=== PATIENT | male | born 1995 | race African-American/Black ===

== ENCOUNTER 2017-11-04 15:46 | Emergency (ER) | payer OTHER ==
[2017-11-04 15:55] VITALS: BP 125/69; PULSE 68; TEMP 97.8; BMI 31.5
--- NOTE | 2017-11-04 15:56 | PDOC ---
History of Present Illness - General Chief Complaint: Pain Stated Complaint: RT ANKLE PAIN Time Seen by Provider: 11/04/17 15:56 Past History - Past Medical History Allergies/Adverse Reactions: Allergies Allergy/AdvReac Type Severity Reaction Status Date / Time No Known Allergies Allergy Verified 11/04/17 15:55 Home Medications: Ambulatory Orders Ibuprofen 800 mg PO TID #30 tablet 11/04/17 COPD: No - Immunization History Immunization Up to Date: No - Suicide/Smoking/Psychosocial Hx Smoking History: Current every day smoker Have you smoked in the past 12 months: Yes Number of Cigarettes Smoked Daily: 10 Information on smoking cessation initiated: No Hx Alcohol Use: No Drug/Substance Use Hx: No Substance Use Type: None *Physical Exam - Vital Signs Last Vital Signs Temp Pulse Resp BP Pulse Ox 97.8 F 68 20 125/69 100 11/04/17 15:52 11/04/17 15:52 11/04/17 15:52 11/04/17 15:52 11/04/17 15:52 *DC/Admit/Observation/Transfer Diagnosis at time of Disposition: Foot pain, right - Discharge Dispostion Disposition: HOME Condition at time of disposition: Stable Admit: No - Referrals Referrals: Eric Carr MD [Staff Physician] - Nato Carroll MD [Staff Physician] - - Patient Instructions Printed Discharge Instructions: DI for Foot Pain Additional Instructions: Your x-rays negative for new fractures today. Please follow up with podiatry and orthopedics for further management of your symptoms. You may take Motrin 800 mg every 8 hours as needed for pain. Please wear the shoe and Saul wrap for comfort. Return to the emergency department if you have worsening pain, numbness and tingling to her extremities, fevers, chills or have any changes in your symptoms. - Post Discharge Activity Forms/Work/School Notes: Back to Work
== END 2017-11-04 17:05 | disposition home or self-care (01) ==
LOC: JERFT 15:46
DX: M79.671 Pain in right foot (principal); F17.210 Nicotine dependence, cigarettes, uncomplicated
CPT/HCPCS: 73610-TC-RT-FY; 73630-TC-RT-FY; 99281-25

== ENCOUNTER 2018-03-18 19:21 | Emergency (ER) | payer OTHER ==
[2018-03-18 19:52] VITALS: BP 133/60; PULSE 73; BMI 31.0
--- NOTE | 2018-03-18 19:52 | PDOC ---
Rapid Medical Evaluation Chief Complaint: Chest Pain Time Seen by Provider: 03/18/18 19:48 Medical Evaluation: Allergies Allergy/AdvReac Type Severity Reaction Status Date / Time No Known Allergies Allergy Verified 11/04/17 15:55 03/18/18 19:48 This patient had a brief in-person evaluation by me The patient has a chief complaint of: right sided chest pain worse with inhalation. States no heavy lifting or shortness of breath. The pertinent physical findings are: NAD even and unlabored breathing no lesions on skin The following orders have been placed: ekg, chest xray This patient will proceed to the ED for further evaluation.
--- NOTE | 2018-03-18 20:19 | PDOC ---
History of Present Illness - General Chief Complaint: Chest Pain Stated Complaint: CHEST PAIN Time Seen by Provider: 03/18/18 19:48 - History of Present Illness Initial Comments: 22-year-old male without comorbidities presents for evaluation of atraumatic onset of right-sided chest pain times one day. He states the pain started last night while at work. He points to the right lateral aspect of the chest as the area of his discomfort he describes his pain as sharp exacerbated with deep breathing relieved with rest no radiation of symptoms. 03/18/18 20:12 Past History - Past Medical History Allergies/Adverse Reactions: Allergies Allergy/AdvReac Type Severity Reaction Status Date / Time No Known Allergies Allergy Verified 11/04/17 15:55 Home Medications: Ambulatory Orders NK [No Known Home Medication] 03/18/18 COPD: No - Immunization History Immunization Up to Date: No - Suicide/Smoking/Psychosocial Hx Smoking History: Current every day smoker Have you smoked in the past 12 months: Yes Number of Cigarettes Smoked Daily: 5 Information on smoking cessation initiated: No Hx Alcohol Use: No Drug/Substance Use Hx: No Substance Use Type: None Review of Systems - Review of Systems Cardiac (ROS): Yes: Chest Pain All Other Systems: Reviewed and Negative *Physical Exam - Vital Signs Last Vital Signs Temp Pulse Resp BP Pulse Ox 73 18 133/60 100 03/18/18 19:48 03/18/18 19:48 03/18/18 19:48 03/18/18 19:48 - Physical Exam Comments: HEAD: NC/AT EYES: Conjuntiva clear Ears: Canals and TM's normal NOSE: No d/c THROAT: Moist mucous membrances, oral pharanx clear, uvula midline NECK: Supple without adenopathy CARDIAC: S1 S2, no chest wall tenderness LUNGS: CTA Full and Equal breath sounds ABDOMEN: Soft NT ND MS: Full ROM in all joints without edema NEUROLOGIC: No gross sensory or motor deficits, NVID SKIN: Normal color and temperature no lesions or rashes 03/18/18 20:14 ED Treatment Course - LABORATORY CBC & Chemistry Diagram: 03/18/18 20:23 03/18/18 20:23 Medical Decision Making - Medical Decision Making 22-year-old male without comorbidities presents for evaluation of atraumatic onset of pleuritic chest pain. I'll get preliminary read lab work and a d-dimer and hopefully discharge him is normal. Do not think he has a PE. I did not order a troponin. His chest pain is not constant it waxes and wanes and it seems that exacerbated with deep breathing 03/18/18 20:19 03/18/18 20:46 D-dimer normal range this is mostly costochondritis chest pain from working. 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 Also represent an intercostal strain. I will give him instructions to follow-up with his primary care physician in one to 2 days with explicit instructions to return to the emergency room should the pain go unresolved or worsen *DC/Admit/Observation/Transfer Diagnosis at time of Disposition: Intercostal muscle strain - Discharge Dispostion Disposition: HOME Condition at time of disposition: Stable Decision to Admit order: No - Referrals Referrals: César Michael MD [Primary Care Provider] - - Patient Instructions Printed Discharge Instructions: DI for Atypical Chest Pain Additional Instructions: Return to the emergency room should symptoms worsen or go unresolved. Follow-up with your primary care physician once 2 days for further evaluation and treatment options. May take Tylenol and Motrin as directed for pain. Her blood work today was normal - Post Discharge Activity
[2018-03-18 20:27] LABS: HEMATOCRIT 39.1 % (35.4-49); MCH 29.1 pg (25.7-33.7); MCHC 33.3 g/dl (32.0-35.9); MEAN CELL VOLUME 87.4 fl (80-96); MEAN PLT VOLUME 9.3 fl (7.5-11.1); PLATELET COUNT 206 K/MM3 (134-434); RBC 4.47 M/mm3 (4.00-5.60); RDW 14.5 % (11.9-15.9); WHITE BLOOD COUNT 6.4 K/mm3 (4.0-10.0)
[2018-03-18 20:48] LABS: ALBUMIN 3.7 g/dl (3.4-5.0); ALK PHOS 81 U/L (45-117); ANION GAP 6 MMOL/L (8-16); BILIRUBIN,TOTAL 0.8 mg/dL (0.2-1); BLOOD UREA NITROGEN 16 mg/dL (7-18); CALCIUM 9.2 mg/dL (8.5-10.1); CHLORIDE 108 mmol/L (98-107); CO2 30 mmol/L (21-32); CREATININE 0.9 mg/dL (0.55-1.3); GLUCOSE,RANDOM 98 mg/dL (74-106); POTASSIUM 4.1 mmol/L (3.5-5.1); SGOT/AST 17 U/L (15-37); SGPT/ALT 22 U/L (13-61); SODIUM 144 mmol/L (136-145); TOT PROT 7.3 g/dl (6.4-8.2)
--- NOTE | 2018-03-19 16:44 | EKG ---
Test Reason : Blood Pressure : / mmHG Vent. Rate : 067 BPM Atrial Rate : 067 BPM P-R Int : 134 ms QRS Dur : 080 ms QT Int : 360 ms P-R-T Axes : 057 065 033 degrees QTc Int : 380 ms NORMAL SINUS RHYTHM NORMAL ECG NO PREVIOUS ECGS AVAILABLE Confirmed by Alberto Todd ([id number]) on 03/19/2018 4:43:25 PM Referred By: Confirmed By:Alberto Todd
== END 2018-03-18 21:27 | disposition home or self-care (01) ==
LOC: JERFT 19:21 → JER 19:21 → JERFT 21:21
DX: S29.011A Strain of muscle and tendon of front wall of thorax, initial encounter (principal); X58.XXXA Exposure to other specified factors, initial encounter; Y93.89 Activity, other specified; Y92.89 Other specified places as the place of occurrence of the external cause; F17.210 Nicotine dependence, cigarettes, uncomplicated
CPT/HCPCS: 36415; 71045-TC-FY; 80053; 85027; 85379; 93005; 93010; 99281-25

== ENCOUNTER 2018-04-02 23:39 | Emergency (ER) | payer OTHER ==
[2018-04-03 00:02] VITALS: BP 122/65; PULSE 92; TEMP 98.3; BMI 31.7
[2018-04-03] MEDS ORDERED: ACETAMINOPHEN 500 MG TABLET (FP) PO STA (01:02)
--- NOTE | 2018-04-03 01:02 | PDOC ---
History of Present Illness <Luz Wright - Last Filed: 04/03/18 01:03> - General History Source: Patient Exam Limitations: No Limitations - History of Present Illness Initial Comments: 04/03/18 01:10 The patient is a 22-year-old male, with no past medical history, who presents to the ED with 2 days of cough and nasal congestion. The patient took benadryl because he thought his symptoms were a result of his allergies. He reports that he smokes marijuana daily. The patient denies any fevers, chills, nausea, vomiting, diarrhea, or abdominal pain. Denies any chest pain or shortness of breath. Allergies: NKA Surgical History: None Social History: Reports daily marijuana use. PCP: Dr. Smith <Leticia Barber - Last Filed: 04/03/18 01:14> - General Chief Complaint: Cold Symptoms Stated Complaint: HEADACHE,COUGHING Time Seen by Provider: 04/03/18 00:52 Past History - Past Medical History COPD: No - Immunization History Immunization Up to Date: No - Suicide/Smoking/Psychosocial Hx Smoking History: Never smoked Have you smoked in the past 12 months: Yes Number of Cigarettes Smoked Daily: 5 Information on smoking cessation initiated: No Hx Alcohol Use: No Drug/Substance Use Hx: Yes (Marijuana) Substance Use Type: None <Luz Wright - Last Filed: 04/03/18 01:03> <Leticia Barber - Last Filed: 04/03/18 01:14> - Past Medical History Allergies/Adverse Reactions: Allergies Allergy/AdvReac Type Severity Reaction Status Date / Time No Known Allergies Allergy Verified 04/02/18 23:52 Home Medications: Ambulatory Orders NK [No Known Home Medication] 03/18/18 Review of Systems - Review of Systems Able to Perform ROS?: Yes Comments:: 04/03/18 01:11 CONSTITUTIONAL: Absent: fever, chills, diaphoresis, generalized weakness, malaise, loss of appetite HEENT: Present: (+)Rhinorrhea, nasal congestion. Absent: throat pain, throat swelling, difficulty swallowing, mouth swelling, ear pain, eye pain, visual Changes CARDIOVASCULAR: Absent: chest pain, syncope, palpitations, irregular heart rate, lightheadedness , peripheral edema RESPIRATORY: Present: (+)cough. Absent: shortness of breath, dyspnea with exertion, orthopnea, wheezing, stridor , hemoptysis GASTROINTESTINAL: Absent: abdominal pain, abdominal distension, nausea, vomiting, diarrhea, constipation, melena, hematochezia GENITOURINARY: Absent: dysuria, frequency, urgency, hesitancy, hematuria, flank pain, genital pain MUSCULOSKELETAL: Absent: myalgia, arthralgia, joint swelling SKIN: Absent: rash, itching, pallor HEMATOLOGIC/IMMUNOLOGIC: Absent: easy bleeding, easy bruising, lymphadenopathy, frequent infections ENDOCRINE: Absent: unexplained weight gain, unexplained weight loss, heat intolerance, cold intolerance NEUROLOGIC: Absent: headache, focal weakness or paresthesias, dizziness, unsteady gait, seizure, mental status changes, bladder or bowel incontinence PSYCHIATRIC: Absent: anxiety, depression, suicidal or homicidal ideation, hallucinations. <Leticia Barber - Last Filed: 04/03/18 01:14> *Physical Exam - Vital Signs Last Vital Signs Temp Pulse Resp BP Pulse Ox 98.3 F 92 H 20 122/65 98 04/02/18 23:53 04/02/18 23:53 04/02/18 23:53 04/02/18 23:53 04/02/18 23:53 <Luz Wright - Last Filed: 04/03/18 01:03> - Vital Signs Last Vital Signs Temp Pulse Resp BP Pulse Ox 98.3 F 92 H 20 122/65 98 04/02/18 23:53 04/02/18 23:53 04/02/18 23:53 04/02/18 23:53 04/02/18 23:53 - Physical Exam Comments: 04/03/18 01:12 GENERAL: Well developed, well nourished. Awake and alert. No acute distress. HEENT: (+)Rhinorrhea. Normocephalic, atraumatic. PERRLA, EOMI. No conjunctival pallor. Sclera are non-icteric. Moist mucous membranes. Oropharynx is clear. NECK: Supple. Full ROM. No JVD. Carotid pulses 2+ and symmetric, without bruits. No thyromegaly. No lymphadenopathy. CARDIOVASCULAR: Regular rate and rhythm. No murmurs, rubs, or gallops. Distal pulses are 2+ and symmetric. PULMONARY: No evidence of respiratory distress. Lungs clear to auscultation bilaterally. No wheezing, rales or rhonchi. ABDOMINAL: Soft. Non-tender. Non-distended. No rebound or guarding. No organomegaly. Normoactive bowel sounds. MUSCULOSKELETAL Normal range of motion at all joints. No bony deformities or tenderness. No CVA tenderness. EXTREMITIES: No cyanosis. No clubbing. No edema. No calf tenderness. SKIN: Warm and dry. Normal capillary refill. No rashes. No jaundice. NEUROLOGICAL: Alert, awake, appropriate. Cranial nerves 2-12 intact. No deficits to light touch and temperature in face, upper extremities and lower extremities. No motor deficits in the in face, upper extremities and lower extremities. PSYCHIATRIC: Cooperative. Good eye contact. Appropriate mood and affect. <Leticia Barber - Last Filed: 04/03/18 01:14> *DC/Admit/Observation/Transfer <Luz Wright - Last Filed: 04/03/18 01:03> - Attestations Scribe Attestion: 04/03/18 01:13 Documentation prepared by Leticia Barber, acting as medical equipment sales for Luz Wright MD. <Leticia Barber - Last Filed: 04/03/18 01:14> Diagnosis at time of Disposition: Common cold virus, Nasal congestion, Cough - Discharge Dispostion Disposition: HOME - Referrals Referrals: Amber Smith MD [Primary Care Provider] - - Patient Instructions Printed Discharge Instructions: DI for Common Cold Additional Instructions: please take tylenol or motrin for fever and bodyaches You may use nasal decongestants you can buy over the counter rest stay hydrated with drinking water - Post Discharge Activity
[2018-04-03] MEDS ORDERED: guaiFENesin 200 MG/10 ML 10 ML UNIT-DOSE CUPS PO ONE (01:03)
[2018-04-03] MEDS ORDERED: ACETAMINOPHEN 325 MG TABLET (FP) ONE (01:23)
[2018-04-03] MEDS ORDERED: guaiFENesin 200 MG/10 ML 10 ML UNIT-DOSE CUPS ONE (01:23)
== END 2018-04-03 01:32 | disposition home or self-care (01) ==
LOC: JER 23:39
DX: J00 Acute nasopharyngitis [common cold] (principal)
CPT/HCPCS: 99282-25

== ENCOUNTER 2018-04-23 00:12 | Emergency (ER) | payer OTHER ==
[2018-04-23 00:36] VITALS: BP 105/66; PULSE 81; TEMP 98.7; BMI 32.5
[2018-04-23] MEDS ORDERED: SODIUM CHLORIDE 1,000 ML IV STA (00:58)
[2018-04-23] MEDS ORDERED: ONDANSETRON 4 MG/2 ML VIAL IVPUSH ONE (00:58)
[2018-04-23] MEDS ORDERED: FAMOTIDINE 20 MG/50 ML IVPB 20 MG/50 ML MG IVPB ONE (00:58)
[2018-04-23] MEDS ORDERED: ACETAMINOPHEN 1000 MG/100 ML VIAL (NON FORMULARY) IVPB ONE (00:58)
--- NOTE | 2018-04-23 01:24 | PDOC ---
History of Present Illness - General Chief Complaint: Pain Stated Complaint: PAIN,LT FOOT Time Seen by Provider: 04/23/18 00:34 History Source: Patient Exam Limitations: No Limitations - History of Present Illness Initial Comments: 04/23/18 01:21 Best Contact: PCP:N/a Pmhx:0 Pshx:0 Allergies:NKDA FH:0 Social Hx: Cigarettes/ 0 Alcohol/ social Drugs/0 LMP:N/A 22-year-old male presents to the ER complaining of pain to the left foot. Patient states he was upset this evening and kicked the car door. Pain is described as 4/10 dull nonradiating intermittent discomfort. Patient denies extremity numbness or tingling sensation, ankle or knee pain. Patient denies any other complaints. Past History - Past Medical History Allergies/Adverse Reactions: Allergies Allergy/AdvReac Type Severity Reaction Status Date / Time No Known Allergies Allergy Verified 04/02/18 23:52 Home Medications: Ambulatory Orders NK [No Known Home Medication] 03/18/18 COPD: No - Immunization History Immunization Up to Date: No - Suicide/Smoking/Psychosocial Hx Smoking History: Current every day smoker Have you smoked in the past 12 months: Yes Number of Cigarettes Smoked Daily: 5 Information on smoking cessation initiated: No Hx Alcohol Use: Yes (Socially) Drug/Substance Use Hx: Yes (MJ) Substance Use Type: None Review of Systems - Review of Systems Able to Perform ROS?: Yes Comments:: 04/23/18 01:23 CONSTITUTIONAL: Absent: fever, chills, diaphoresis, generalized weakness, malaise, loss of appetite HEENT: Absent: rhinorrhea, nasal congestion, throat pain, throat swelling, difficulty swallowing, mouth swelling, ear pain, eye pain, visual Changes CARDIOVASCULAR: Absent: chest pain, loss of consciousness, palpitations, irregular heart rate, peripheral edema RESPIRATORY: Absent: cough, shortness of breath, dyspnea with exertion, orthopnea, wheezing, stridor, hemoptysis GASTROINTESTINAL: Absent: abdominal pain, abdominal distension, nausea, vomiting, diarrhea, constipation, melena, hematochezia GENITOURINARY: Absent: dysuria, frequency, urgency, hesitancy, hematuria, flank pain, genital pain MUSCULOSKELETAL: + Pain to left great toe and mid foot Absent: myalgia, arthralgia, joint swelling SKIN: Absent: rash, itching, pallor Is the patient limited [place] proficient: No *Physical Exam - Vital Signs Last Vital Signs Temp Pulse Resp BP Pulse Ox 98.7 F 81 20 105/66 100 04/23/18 00:20 04/23/18 00:20 04/23/18 00:20 04/23/18 00:20 04/23/18 00:20 - Physical Exam Comments: 04/23/18 01:23 GENERAL: Well developed, well nourished. Awake and alert. No acute distress. MUSCULOSKELETAL Normal range of motion at all joints. No bony deformities or tenderness. No CVA tenderness. EXTREMITIES: No cyanosis. No clubbing. No edema. No calf tenderness. SKIN: Warm and dry. Normal capillary refill. No rashes. No jaundice. ED Treatment Course - RADIOLOGY Radiology Studies Ordered: Category Date Time Status FOOT-LEFT [RAD] Stat Radiology 04/23/18 00:35 Taken Radiograph Interpretation: 04/23/18 01:23 XR left foot; neg - Medications Given in the ED: ED Medications Discontinued Medications Generic Name Dose Route Start Last Admin Trade Name Aguilaq PRN Reason Stop Dose Admin Acetaminophen 1,000 mg 04/23/18 00:58 04/23/18 01:19 Ofirmev Injection - IVPB 04/23/18 00:59 Not Given ONCE ONE Famotidine/Sodium Chloride 20 mg in 50 mls @ 100 mls/hr 04/23/18 00:58 01:19 Pepcid 20 Mg Premixed Ivpb - IVPB 04/23/18 01:27 Not Given ONCE ONE Sodium Chloride 1,000 mls @ 1,000 mls/hr 04/23/18 00:58 04/23/18 01:19 Normal Saline - IV 04/23/18 01:57 Not Given ASDIR STA Ondansetron HCl 4 mg 04/23/18 00:58 04/23/18 01:20 Zofran Injection IVPUSH 04/23/18 00:59 Not Given ONCE ONE *DC/Admit/Observation/Transfer Diagnosis at time of Disposition: Contusion of foot, left Qualifiers: Encounter type: initial encounter Qualified Code(s): S90.32XA - Contusion of left foot, initial encounter - Discharge Dispostion Disposition: HOME Condition at time of disposition: Stable Decision to Admit order: No - Referrals Referrals: Amber Smith MD [Primary Care Provider] - Saul Mathur MD [Staff Physician] - - Patient Instructions Printed Discharge Instructions: DI for Contusion Additional Instructions: Ice; 20 mins on alternating with 20 mins off for 48 hours while awake. Rest Elevate Follow up with your orthopedic surgeon or the one listed on the discharge form. Return to the ER for severe/persistent/worsening symptoms, extremity numbness/ tingling sensation. - Post Discharge Activity
== END 2018-04-23 01:29 | disposition home or self-care (01) ==
LOC: JER 00:12
DX: S90.32XA Contusion of left foot, initial encounter (principal); W22.8XXA Striking against or struck by other objects, initial encounter; Y93.89 Activity, other specified; Y92.89 Other specified places as the place of occurrence of the external cause; Y99.8 Other external cause status
CPT/HCPCS: 73630-TC-LT; 99283-25

== ENCOUNTER 2019-03-26 21:48 | Emergency (ER) | payer OTHER ==
[2019-03-26 21:53] VITALS: BP 124/78; PULSE 97; TEMP 98.1; BMI 31.1
--- NOTE | 2019-03-26 23:19 | PDOC ---
Attending Attestation - Resident Resident Name: Jonah Jc - ED Attending Attestation I have performed the following: I have examined & evaluated the patient, The case was reviewed & discussed with the resident, I agree w/resident's findings & plan - HPI HPI: 03/26/19 23:49 agree with resident hpi - Physicial Exam PE: 03/26/19 23:50 agree with exam - Medical Decision Making 03/26/19 23:50 23 yo male with cough, sore throat wheezing duoneb, dexamethasone in ED with improvement d/c with azithromycin for presumed strep, smokers bronchitis
[2019-03-26] MEDS ORDERED: DEXAMETHASONE SOD PHOSPHATE 10 MG/1 ML VIAL IM ONE (23:28)
[2019-03-26] MEDS ORDERED: ALBUTEROL SO4 2.5/IPRATROPIUM 0.5 INH SOL 3 ML VIAL.NEB. NEB ONE ×3 (23:28→23:36)
[2019-03-26] MEDS ORDERED: DEXAMETHASONE SOD PHOSPHATE 10 MG/1 ML VIAL ONE (23:36)
--- NOTE | 2019-03-27 00:04 | PDOC ---
History of Present Illness - General Chief Complaint: Cold Symptoms Stated Complaint: COLD SYMPTOMS Time Seen by Provider: 03/26/19 23:18 - History of Present Illness Initial Comments: 03/26/19 23:58 Patient is a 23 yo male w/ no pmh who presents for evaluation of 1 week history of cough and congestion. Patient reports he has been smoking cigarettes and marijuana in the mean time. Also endorses sore throat. Denies other symptoms at this time. The patient denies chest pain, shortness of breath, headache and dizziness. Denies fever, chills, nausea, vomit, diarrhea and constipation. Denies dysuria, frequency, urgency and hematuria. Past History - Past Medical History Allergies/Adverse Reactions: Allergies Allergy/AdvReac Type Severity Reaction Status Date / Time No Known Allergies Allergy Verified 03/26/19 21:54 Home Medications: Ambulatory Orders Albuterol Sulfate Inhaler - [Ventolin Hfa Inhaler -] 1 - 2 inh PO Q4H #1 inhaler 03/27/19 Azithromycin [Zithromax 250mg Tablets -] 250 mg PO UTDICT #6 tab 03/27/19 Methylprednisolone [Medrol Dose Loki] 4 mg PO ASDIR #21 tablet 03/27/19 COPD: No - Immunization History Immunization Up to Date: Yes - Psycho Social/Smoking Cessation Hx Smoking History: Current every day smoker Have you smoked in the past 12 months: Yes Number of Cigarettes Smoked Daily: 4 Information on smoking cessation initiated: Yes Hx Alcohol Use: No Drug/Substance Use Hx: No Substance Use Type: None Review of Systems - Review of Systems Comments:: 03/27/19 00:01 GENERAL/CONSTITUTIONAL: No fever or chills. No weakness. HEAD, EYES, EARS, NOSE AND THROAT: +Sore throat as described. No change in vision. No ear pain or discharge. CARDIOVASCULAR: No chest pain or shortness of breath RESPIRATORY: +Cough, congestion as described. No wheezing, or hemoptysis. GASTROINTESTINAL: No nausea, vomiting, diarrhea or constipation. GENITOURINARY: No dysuria, frequency, or change in urination. MUSCULOSKELETAL: No joint or muscle swelling or pain. No neck or back pain. SKIN: No rash NEUROLOGIC: No headache, vertigo, loss of consciousness, or change in strength/ sensation. ENDOCRINE: No increased thirst. No abnormal weight change HEMATOLOGIC/LYMPHATIC: No anemia, easy bleeding, or history of blood clots. ALLERGIC/IMMUNOLOGIC: No hives or skin allergy. *Physical Exam - Vital Signs Last Vital Signs Temp Pulse Resp BP Pulse Ox 98.1 F 97 H 18 124/78 95 03/26/19 21:51 03/26/19 21:51 03/26/19 21:51 03/26/19 21:51 03/26/19 21:51 - Physical Exam Comments: 03/27/19 00:02 GENERAL: Awake, alert, and fully oriented, in no acute distress HEAD: No signs of trauma, normocephalic, atraumatic EYES: PERRLA, EOMI, sclera anicteric, conjunctiva clear ENT: Auricles normal inspection, hearing grossly normal, nares patent, oropharynx clear without exudates. Moist mucosa NECK: Normal ROM, supple, no lymphadenopathy, JVD, or masses LUNGS: +Minor non-specific wheezes. No distress, speaks full sentences, clear to auscultation bilaterally HEART: Regular rate and rhythm, normal S1 and S2, no murmurs, rubs or gallops, peripheral pulses normal and equal bilaterally. ABDOMEN: Soft, nontender, normoactive bowel sounds. No guarding, no rebound. No masses EXTREMITIES: Normal inspection, Normal range of motion, no edema. No clubbing or cyanosis. NEUROLOGICAL: Cranial nerves II through XII grossly intact. Normal speech, normal gait, no focal sensorimotor deficits SKIN: Warm, Dry, normal turgor, no rashes or lesions noted. ED Treatment Course - Medications Given in the ED: ED Medications Discontinued Medications Generic Name Dose Route Start Last Admin Trade Name Eli PRN Reason Stop Dose Admin Albuterol/Ipratropium 1 amp 03/26/19 23:28 03/26/19 23:43 Duoneb - NEB 03/26/19 23:29 1 amp ONCE ONE Administration Albuterol/Ipratropium 1 amp 03/26/19 23:32 03/26/19 23:43 Duoneb - NEB 03/26/19 23:33 1 amp ONCE ONE Administration Dexamethasone Sodium Phosphate 10 mg 03/26/19 23:28 03/26/19 23:43 Decadron Injection - IM 03/26/19 23:29 10 mg ONCE ONE Administration Medical Decision Making - Medical Decision Making 03/27/19 00:03 Patient is a 23 yo male w/ pmh as described who presents for evaluation of viral vs. bacterial symptoms. Patient improved s/p duoneb and dexamethosone and will cover w/ ABX. CXR negative for acute process. Discharging to home. Discharge - Discharge Information Problems reviewed: Yes Clinical Impression/Diagnosis: Cough Disposition: HOME - Additional Discharge Information Prescriptions: Albuterol Sulfate Inhaler - [Ventolin Hfa Inhaler -] 1 - 2 inh PO Q4H #1 inhaler Azithromycin [Zithromax 250mg Tablets -] 250 mg PO UTDICT #6 tab Methylprednisolone [Medrol Dose Loki] 4 mg PO ASDIR #21 tablet - Follow up/Referral - Patient Discharge Instructions Patient Printed Discharge Instructions: DI for Viral Upper Respiratory Infection -- Adult Additional Instructions: You were evaluated today in the ER for your symptoms. We proscribed antibiotics as well as steroids and an inhaler and sent them to your pharmacy. Take all medications as proscribed. Return to ER if any fever, chills, pain, or other concerning symptoms. Follow-up with primary care provider later this week for further evaluation. - Post Discharge Activity Work/Back to School Note: Back to Work
== END 2019-03-27 00:14 | disposition home or self-care (01) ==
LOC: JERFT 21:48 → JER 21:48
PROC: 3E0233Z Introduction of Anti-inflammatory into Muscle, Percutaneous Approach (ICD-10-PCS; principal; 2019-03-26)
PROC: 3E0F7GC Introduction of Other Therapeutic Substance into Respiratory Tract, Via Natural or Artificial Opening (ICD-10-PCS; 2019-03-26)
PROC: 3E0F7GC Introduction of Other Therapeutic Substance into Respiratory Tract, Via Natural or Artificial Opening (ICD-10-PCS; 2019-03-26)
DX: J06.9 Acute upper respiratory infection, unspecified (principal); B97.89 Other viral agents as the cause of diseases classified elsewhere; F17.210 Nicotine dependence, cigarettes, uncomplicated; F12.10 Cannabis abuse, uncomplicated
CPT/HCPCS: 71046-TC-FY; 99281-25; J1100

== ENCOUNTER 2019-06-24 15:05 | Emergency (ER) | payer OTHER ==
[2019-06-24 15:12] VITALS: BP 116/62; PULSE 76; TEMP 98; BMI 31.0
[2019-06-24] MEDS ORDERED: IBUPROFEN 600 MG TABLET (FP) PO ONE ×2 (15:15→15:49)
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
[2019-06-24] MEDS ORDERED: CYCLOBENZAPRINE HCL 5 MG TABLET PO SCH (15:45)
[2019-06-24] MEDS ORDERED: CYCLOBENZAPRINE HCL 10 MG TABLET (FP) ONE (15:49)
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
== END 2019-06-24 16:12 | disposition home or self-care (01) ==
LOC: JERFT 15:05
DX: S39.82XA Other specified injuries of lower back, initial encounter (principal); M54.5 Low back pain; V49.49XA Driver injured in collision with other motor vehicles in traffic accident, initial encounter; Y92.414 Local residential or business street as the place of occurrence of the external cause; Y93.89 Activity, other specified; Y99.8 Other external cause status
CPT/HCPCS: 99281-25